=== PATIENT | male | born 1990 | race African-American/Black ===

== ENCOUNTER 2023-11-02 06:57 | Emergency (ER) | payer OTHER ==
[2023-11-02 07:00] VITALS: BP 127/78; PULSE 65; RESP 18; TEMP 97.7; BMI 20.7
[2023-11-02] MEDS ORDERED: LIDOCAINE HCL 1%, 10 MG/ML (20ML VIAL) ONE (07:52)
[2023-11-02] MEDS: LIDOCAINE HCL 1% PRESERVATIVE FREE - 30ML VIAL IJ ONE (08:00)
[2023-11-02] MEDS ORDERED: ACETAMINOPHEN 500 MG TABLET (FP) ONE (09:42)
[2023-11-02] MEDS ORDERED: BACITRACIN ZINC 15 GM TUBE TOPICAL OINTMENT ONE (09:42)
[2023-11-02] MEDS ORDERED: DIPHTH,PERTUSS(ACELL),TET 0.5 ML DISP.SYRIN IM ONE (09:43)
[2023-11-02] MEDS: DIPHTH,PERTUSS(ACELL),TET 0.5 ML DISP.SYRIN IM ONE (09:56)
[2023-11-02] MEDS: ACETAMINOPHEN 500 MG TABLET (FP) PO ONE (09:57)
[2023-11-02] MEDS: BACITRACIN ZINC 15 GM TUBE TOPICAL OINTMENT TP ONE (09:58)
== END 2023-11-02 10:45 | disposition home or self-care (01) ==
LOC: JERFT 06:57
PROC: 0XQKXZZ Repair Left Hand, External Approach (ICD-10-PCS; principal; 2023-11-02)
PROC: 3E0234Z Introduction of Serum, Toxoid and Vaccine into Muscle, Percutaneous Approach (ICD-10-PCS; 2023-11-02)
DX: S61.412A Laceration without foreign body of left hand, initial encounter (principal); S61.211A Laceration without foreign body of left index finger without damage to nail, initial encounter; Y04.0XXA Assault by unarmed brawl or fight, initial encounter; Z23 Encounter for immunization
CPT/HCPCS: 90715; 99284-25